=== PATIENT | male | born 1950 | race Caucasian/White ===

== ENCOUNTER 2020-09-16 | Emergency (ER) | payer MEDICARE ==
[~2020-09-16] MED LIST: LEVOTHYROXINE200 MCG PO
[2020-09-16 14:47] LABS: HEMATOCRIT 55.2 % (39.0-50.0); HEMOGLOBIN 17.7 g/dl (14.0-18.0); IMMATURE GRANULOCYTES 0.3 % (0.0-5.0); MEAN CELL VOLUME 91.7 fL CALC (80.0-100.0); MEAN CORPUSCULAR HGB 29.4 pG CALC (26.0-32.0); MEAN CORPUSCULAR HGB CONC 32.1 g/dL CAL (32.0-36.0); NEUT# 8.38 thou/uL (1.82-7.42); RED BLOOD COUNT 6.02 mill/uL (4.70-6.10); RED CELL DISTRI WIDTH 14.6 % (11.5-15.5)
[2020-09-16 15:02] LABS: ALBUMIN 4.7 g/dL (3.2-5.0); ALKALINE PHOSPHATASE 89 u/l (38-126); ANION GAP 14 (6-22 (CALC)); BILIRUBIN, TOTAL 1.4 mg/dL (0.0-1.4); BUN 11 mg/dL (8-23); BUN/CREATININE RATIO 10 (12-20 (CALC)); CARBON DIOXIDE 28 mmol/l (22-30); CHLORIDE 102 mmol/l (95-108); CREATININE 1.1 mg/dL (0.7-1.3); GFR > 60 ML/MIN (>=60 (CALC)); GFR FOR AFR.AMER. > 60 ML/MIN (>=60 (CALC)); POTASSIUM 4.7 mmol/l (3.5-5.1); SGOT/AST 34 u/l (19-48); SODIUM 139 mmol/l (137-146); TOTAL PROTEIN 7.7 g/dL (6.3-8.2)
== END 2020-09-16 19:19 | disposition short-term general hospital (02) ==
PROVIDERS: Family Medicine
DX: I26.99 Other pulmonary embolism without acute cor pulmonale (principal); I82.401 Acute embolism and thrombosis of unspecified deep veins of right lower extremity; I10 Essential (primary) hypertension; Z20.822 Contact with and (suspected) exposure to COVID-19
CPT/HCPCS: J1644; Q9967

== ENCOUNTER 2021-08-17 23:38 | Observation (INO) | payer MEDICARE ==
[~2021-08-17] VITALS: Ht 175.3 cm; Wt 105.0 kg
--- NOTE | 2021-08-17 23:40 | NUR ---
PT ARRIVES VIA EMS, DIRECT TO ROOM, TRIAGE AT BEDSIDE.
[2021-08-18 00:16] LABS: GFR > 60 ML/MIN (>=60 (CALC)); GFR FOR AFR.AMER. > 60 ML/MIN (>=60 (CALC))
[2021-08-18 00:20] LABS: IMMATURE GRANULOCYTES 0.5 % (0.0-5.0); MEAN CELL VOLUME 89.9 fL CALC (80.0-100.0); MEAN CORPUSCULAR HGB 29.1 pG CALC (26.0-32.0); MEAN CORPUSCULAR HGB CONC 32.4 g/dL CAL (32.0-36.0); NEUT# 6.24 thou/uL (1.82-7.42); RED BLOOD COUNT 5.15 mill/uL (4.70-6.10); RED CELL DISTRI WIDTH 14.5 % (11.5-15.5)
[2021-08-18 00:22] LABS: HEMATOCRIT 46.3 % (39.0-50.0)
[2021-08-18 00:53] LABS: ALBUMIN 4.6 g/dL (3.2-5.0); ALKALINE PHOSPHATASE 86 u/l (38-126); AMYLASE 66 u/l (30-110); ANION GAP 16 (6-22 (CALC)); BILIRUBIN, TOTAL 1.1 mg/dL (0.0-1.4); BUN 14 mg/dL (8-23); BUN/CREATININE RATIO 12 (12-20 (CALC)); CHLORIDE 107 mmol/l (95-108); CREATININE 1.1 mg/dL (0.7-1.3); ETHYL ALCOHOL 0 mg/dl (0-30); GFR > 60 ML/MIN (>=60 (CALC)); GFR FOR AFR.AMER. > 60 ML/MIN (>=60 (CALC)); LIPASE 56 u/l (23-300); POTASSIUM 3.9 mmol/l (3.5-5.1); SGOT/AST 32 u/l (19-48); SODIUM 140 mmol/l (137-146); TOTAL PROTEIN 7.7 g/dL (6.3-8.2)
[2021-08-18 00:54] LABS: ACT PARTIAL THROMBO TIME 25.2 SECONDS (20.0-32.5); PROTHROMBIN TIME 10.5 SECONDS (9.0-12.5)
[2021-08-18 00:55] LABS: CARBON DIOXIDE 21 mmol/l (22-30)
--- NOTE | 2021-08-18 00:55 | NUR ---
PT IS STABLE AND HAS HAD TELENEURO CONSULT, PT FAMILY AT BEDSIDE.
[2021-08-18 01:04] LABS: D-DIMER 0.3 mg/L (0.19-0.60)
--- NOTE | 2021-08-18 01:55 | NUR ---
PT RESTING COMFORTABLY RECIEVING IV FLUIDS AND NEURO STATUS IS BEGINING TO RETURN TO WHAT SPOUSE CONSIDERS BASELINE, PT IS A&O X 3, WILL CONT MONITORING.
[2021-08-18 02:24] LABS: URINE BILIRUBIN - DIPSTICK NEGATIVE (NEGATIVE); URINE BLOOD DIPSTICK NEGATIVE (NEGATIVE); URINE COLOR YELLOW; URINE GLUCOSE - DIPSTICK NEGATIVE (NEGATIVE); URINE KETONE NEGATIVE (NEGATIVE); URINE LEUK ESTERASE NEGATIVE (NEGATIVE); URINE PH 5.5 (4.5-8.0); URINE PROTEIN - DIPSTICK NEGATIVE (NEG-TRACE); URINE SPECIFIC GRAVITY <=1.005; URINE UROBILINOGEN - DIPSTICK 0.2 E.U./dL (0.2)
[2021-08-18 02:25] LABS: URINE NITRITE - DIPSTICK NEGATIVE (Negative)
--- NOTE | 2021-08-18 02:26 | NUR ---
PT RESTING QUIETLY IN NO DISTRESS, IS ALERT AND ORIENTED NO LONGER SHOWING ANY NEURO DEFICEIT, WILL CONT TO MONITOR.
--- NOTE | 2021-08-18 03:50 | NUR ---
PT RESTING QUIETLY AND IS SHOWING NO NEURO DEFICEIT AT THIS TIME.
--- NOTE | 2021-08-18 04:19 | NUR ---
REPORT CALLED TO AVI PAUL.
--- NOTE | 2021-08-18 04:19 | NUR ---
PT TRANSPORTED OFF UNIT TO [facility] VIA STRETCHER BY ED STAFF.
[2021-08-18 05:03] VITALS: BP 138/79
--- NOTE | 2021-08-18 05:44 | NUR ---
PATIENT ADMITTED FROM ER VIA STRETCHER WITH ER STAFF IN ATTENDANCE. PATIENT IS AWAKE ALERT AND ORIENTEDX3. PATIENT IS ABLE TO WALK WITH MION ASSIST TO THE BR TO VOID. PATIENT THEN MIN ASSIST BACK TO THE BED. PATIENT STATES THAT HE DOESN'T KNOW WHAT HAPPENED TONIGHT-STATES THAT HE ATE A SMALL AMT OF AN "EDIBLE" FROM A FRIEND AND THEN GOT SOB, CONFUSED AND ANXIOUS. PATIENT STATES THAT HE DDOES USE CANNABUS DAILY BUT THIS NEVER HAPPENED BEFORE. IV SITE TO LAC INTACT AND IVF NS HUNG AND INFUSING AT 125CC/HR. SITE IS HEALTHY, TELE MONITOR IN PLACE. ABD IS LARGE WITH ACTIVE BS. LUNGS ARE CLEAR, NO PERIPHERAL EDEMA NOTED. NEURO CHECK WNL AT THIS TIME. ORIENTED TO ROOM AND SURROUNDINGS. INSTRUCTED ON USE OF NURSE CALL LIGHT SYSTEM AND TV REMOTE. SAFETY PRECAUTIONS REINFORCED. CALL LIGHT IN REACH. WILL CONT TO MONITOR.
[2021-08-18 06:30] LABS: CALCULATED LDLCHOLESTEROL 107 mg/dL (62-129 (CALC)); CHOLESTEROL HDL RATIO 5.4 (<4.4 (CALC)); HDL CHOLESTEROL 32 mg/dL (>=40); TOTAL CHOLESTEROL 171 mg/dl (0-199); TOTAL TRIGLYCERIDES 158 mg/dl (30-149); VLDL CHOLESTROL 32 mg/dl (0-38 (CALC))
[2021-08-18 06:53] LABS: TSH, 3RD GENERATION < 0.02 uIU/mL (0.47 - 4.68)
--- NOTE | 2021-08-18 08:23 | NUR ---
Receive report from Tracy PAUL. Patient stable at this time.
--- NOTE | 2021-08-18 08:23 | NUR ---
Patient with order to transfer to ICU. GIVED REPORT TO IAN PAUL.
[2021-08-18 08:42] LABS: C-REACTIVE PROTEIN < 0.5 mg/dL (0-0.9)
[2021-08-18 09:15] VITALS: BP 126/69
[2021-08-18 09:30] VITALS: BP 126/66
[2021-08-18 09:45] VITALS: BP 129/75
[2021-08-18 10:13] VITALS: BP 124/72
--- NOTE | 2021-08-18 11:00 | NUR ---
PT ARRIVED TO ROOM 8 IN ICU FROM MED/SURG, SEEN AWAKE, ALERT, ORIENTED X 3. NO DEFICITS APPRECIATED DURING ASSESSMENT. PT AWARE OF PENDING MRI AT 1230. DR BABB HAS SEEN PT THIS MORNING.
[2021-08-18 12:00] VITALS: BP 128/72
--- NOTE | 2021-08-18 12:44 | NUR ---
PT HAS REMAINED FREE OF SYMPTOMS R/T CVA OR TIA. PT TO MRI AT THIS TIME. IS AT BEDSIDE.
[2021-08-18] MEDS ORDERED: CYTOMEL25 MC1 PO (13:27)
[2021-08-18] MEDS ORDERED: TOPAMAX25 MG PO (13:28)
[2021-08-18] MEDS ORDERED: TURMERI1 PO (13:29)
[2021-08-18] MEDS ORDERED: CO Q-10 PO (13:29)
[2021-08-18] MEDS ORDERED: TADALAFIL20 M1 PO (13:30)
[2021-08-18] MEDS ORDERED: ELIQUIS2.5 MG PO (13:33)
[2021-08-18] MEDS ORDERED: ZESTRIL10 M1 PO (13:43)
--- NOTE | 2021-08-18 14:55 | NUR ---
PT WAITS IN ROOM WITH FOR RESULTS OF MRI. PROBABLE DISCHARGE AFTER RESULT IS KNOWN.
--- NOTE | 2021-08-18 15:15 | NUR ---
PT HAS BEEN DISCHARGED TO HOME. PT VERBALIZES UNDERSTANDING OF DC INSTRUCTIONS, TAKEN BY WHEELCHAIR TO VEHICLE. PT LEAVES [facility] IN STABLE CONDITION.
== END 2021-08-18 17:15 | disposition home or self-care (01) ==
LOC: ED 23:38 → ED-I 08-18 03:17 → ED 08-18 03:53 → MS2 08-18 03:54 → UNDODEPER 08-18 07:35 → ICU 08-18 08:08 → MS2 08-18 08:08 → ICU 08-18 08:45
PROVIDERS: Nurse Practitioner; ADMIT Hospitalist; ATTEND Hospitalist
DX: F12.929 Cannabis use, unspecified with intoxication, unspecified (principal); I10 Essential (primary) hypertension; E03.9 Hypothyroidism, unspecified; Z86.718 Personal history of other venous thrombosis and embolism; Z79.01 Long term (current) use of anticoagulants; Z86.711 Personal history of pulmonary embolism; Z85.850 Personal history of malignant neoplasm of thyroid; Z20.822 Contact with and (suspected) exposure to COVID-19; Z23 Encounter for immunization
CPT/HCPCS: G0378; J2060; Q9967; S0164